=== PATIENT | male | born 1970 ===

== ENCOUNTER 2017-12-08 11:54 | Emergency (ER) | payer OTHER ==
[2017-12-08 12:17] VITALS: BMI 28.7
[2017-12-08 12:21] VITALS: BP 151/81; PULSE 74; RESP 18; TEMP 98; O2SAT 99
[2017-12-08] MEDS ORDERED: Tdap Vaccine 0.5 ml Vial (10-64 yrs) IM ONE ×2 (12:26→12:52)
--- NOTE | 2017-12-08 12:29 | C.PDOC ---
History Of Present Illness 47yo male with no known past medical history, presents to ED with complaints of a laceration injury to his left thenar eminence, occurring at 2:30pm yesterday. Patient reports he was cutting some drywall at work and the knife injured his hand. He denies any weakness, numbness or tingling to the hand. Patient is unsure of his last tetanus vaccination. He has no other medical complaints. Time Seen by Provider: 12/08/17 12:21 Chief Complaint (Nursing): Abnormal Skin Integrity History Per: Patient History/Exam Limitations: no limitations Onset/Duration Of Symptoms: Days (1) Current Symptoms Are (Timing): Still Present Location Of Injury: Left: Hand (thenar eminence), Anterior: Hand Quality Of Symptoms: Painful, Swollen Additional History Per: Patient Past Medical History Reviewed: Historical Data, Nursing Documentation, Vital Signs Vital Signs: Last Vital Signs Temp 98.0 F 12/08/17 12:16 Pulse 74 12/08/17 12:16 Resp 18 12/08/17 12:16 BP 151/81 H 12/08/17 12:16 Pulse Ox 99 12/08/17 12:57 - Medical History PMH: No Chronic Diseases Surgical History: No Surg Hx Family History: States: No Known Family Hx - Social History Hx Alcohol Use: No Hx Substance Use: No - Immunization History Hx Tetanus Toxoid Vaccination: No Hx Influenza Vaccination: No Hx Pneumococcal Vaccination: No Review Of Systems Except As Marked, All Systems Reviewed And Found Negative. Constitutional: Negative for: Fever, Chills Skin: Positive for: Other (laceration to left thenar eminence) Neurological: Negative for: Weakness, Numbness Physical Exam - Physical Exam Appears: Non-toxic, No Acute Distress Skin: Normal Color Head: Atraumatic, Normacephalic Eye(s): bilateral: Normal Inspection Extremity: Normal ROM (FROM of all digits on left hand), Capillary Refill (< 2 sec), No Deformity, Swelling ((+) 1cm linear laceration with mild swelling noted to left thenar eminence. No erythema, tenderness, drainage, or active bleeding.) Extremity: Bilateral: Normal Color And Temperature Pulses: Left Radial: Normal, Right Radial: Normal Neurological/Psych: Oriented x3, Normal Motor, Normal Sensation Gait: Steady ED Course And Treatment O2 Sat by Pulse Oximetry: 99 (RA) Pulse Ox Interpretation: Normal Medical Decision Making Medical Decision Making: Impression: Laceration Plan: -- Laceration irrigated with pressurized saline, bacitracin applied and sterile dressing placed. -- Adacel 0.5ml IM -- Motrin 600 mg PO -- Cleocin 300 mg PO The wound is not bleeding and is almost 24 hours old, unable to suture at this time. Will cover for possible infection. PAtient was instructed to follow up with the medical doctor/clinic for wound check in 2 days without fail. Return if worsened. Disposition - Disposition Referrals: [facility] [Outside] Disposition: HOME/ ROUTINE Disposition Time: 12:53 Condition: GOOD Additional Instructions: WASH THE WOUND TWICE A DAY WITH SOAP AND WATER. APPLY BACITRACIN AFTERWARDS TAKE ANTIBIOTICS UNTIL COMPLETED. RETURN TO THE ED IF WORSENED. Prescriptions: Bacitracin Ointment [Bacitracin] 30 gm TOP BID #1 tube Clindamycin [Cleocin] 300 mg PO TID #30 cap Ibuprofen [Motrin] 600 mg PO TID #21 tab Instructions: Laceration Infection (DC) Forms: [employer] (Thai), Work Excuse Print Language: ICELANDIC - Clinical Impression Clinical Impression: Hand laceration - PA / [employer] / Resident Statement MD/DO has reviewed & agrees with the documentation as recorded. - Scribe Statement The provider has reviewed the documentation as recorded by the Scribe (Mine Smith) Provider Attestation: All medical record entries made by the Scribe were at my direction and personally dictated by me. I have reviewed the chart and agree that the record accurately reflects my personal performance of the history, physical exam, medical decision making, and the department course for this patient. I have also personally directed, reviewed, and agree with the discharge instructions and disposition.
[2017-12-08] MEDS ORDERED: Bacitracin 500 Units/gm Oint Foilpak UD TOP ONE (12:41)
[2017-12-08] MEDS ORDERED: Bacitracin 500 Units/gm Oint Foilpak UD ONE (12:43)
== END 2017-12-08 13:09 | disposition home or self-care (01) ==
LOC: C.ER 11:54
DX: S61.412A Laceration without foreign body of left hand, initial encounter (principal); W26.0XXA Contact with knife, initial encounter; Y92.89 Other specified places as the place of occurrence of the external cause; Y99.0 Civilian activity done for income or pay